=== PATIENT | male | born 1975 | race Caucasian/White ===

== ENCOUNTER 2016-11-18 11:20 | Day surgery (SDC) | payer OTHER ==
[~2016-11-18 11:20] MED LIST: ceFAZolin 2 GM/DEXTROSE 100 ML IV ONE
[2016-11-18] MEDS ORDERED: BUPIVACAINE/EPI 0.25% 30 ML SDV ONE (11:45)
[2016-11-18] MEDS ORDERED: CEFAZOLIN 2 GM/DEXTROSE/100 ML BAG IV ONE (12:07)
[2016-11-18] MEDS ORDERED: LIDOCAINE 1% 2 ML INJ ONE (12:07)
[2016-11-18] MEDS ORDERED: MIDAZOLAM 2 MG/2 ML VIAL ONE (13:02)
[2016-11-18] MEDS ORDERED: PROPOFOL 200 MG/20 ML VIAL ONE (13:08)
[2016-11-18] MEDS ORDERED: ROCURONIUM 50 MG/5 ML VIAL ONE (13:08)
[2016-11-18] MEDS ORDERED: fentaNYL 250 MCG/5 ML INJ ONE (13:08)
[2016-11-18] MEDS ORDERED: LIDOCAINE 2% 5 ML SDV ONE (13:09)
[2016-11-18] MEDS ORDERED: KETOROLAC 30 MG/1 ML SDV ONE (13:09)
[2016-11-18] MEDS ORDERED: DEXAMETHASONE 4 MG/ML VIAL ONE (13:09)
[2016-11-18] MEDS ORDERED: fentaNYL 100 MCG/2 ML INJ ONE (14:51)
--- NOTE | 2016-11-18 15:19 | GOP ---
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 ANESTHESIA: General endotracheal. ANESTHESIOLOGIST: Dr. Dent. PREOPERATIVE DIAGNOSIS: Symptomatic left inguinal hernia. POSTOPERATIVE DIAGNOSIS: Symptomatic left inguinal hernia. PROCEDURE PERFORMED: Laparoscopic left inguinal hernia repair with mesh. FINDINGS: Large, direct, left-sided inguinal defect consistent with preoperative exam. No indirect defect identified. Area patched with Parietex laparoscopic mesh with appropriate overlap. SPECIMENS: None. ESTIMATED BLOOD LOSS: 10 cc. DESCRIPTION OF PROCEDURE: The patient was greeted in the preoperative suite. Once again, risks, be nefits, and alternatives were discussed. Consent was signed. He was then brought back to the opera tive suite, placed on the OR table in a supine position. After all anesthesia machines, including S CDs, were on and functioning, [employer] time-out was performed. General endotrachea l anesthesia was then induced without incident. Antibiotics were given on-call to the operating horacio m. The patient's abdomen was then widely prepped and draped in typical sterile fashion. I commenced th e procedure by making a curvilinear incision inferior to the umbilicus and carried this down. I erika ntified the anterior rectus sheath and using cautery, dissected it off. I then bluntly spread the r ectus muscles and identified the posterior sheath. I then developed a blunt plane here. Through th is, my laparoscopic dissector was placed and I developed the preperitoneal plane. Once this was don e, I successfully placed my laparoscopic ports, 1 successfully through the umbilicus and 2 additiona l 5 mm ports, 1 in the suprapubic and 1 in-between the 2, both under direct visualization. Once suc cessfully into the preperitoneal space, I insufflated with CO2 to 12 mmHg which was well tolerated b y the patient. After this was done, I continued dissection on the lateral space and brought this medially. I ident ified Santosh's ligament, just adjacent to this, the femoral vein and a large indirect defect. This was successfully reduced with gentle dissection. I then dissected the cord structures and identifie d no indirect defect at this site. After this was done, and I had the appropriate space for our mes h, it was then brought back into the operative field. I placed it into the peritoneal cavity. I ta cked it medially and above the direct defect with sufficient overlap and again, medial inferiorly in to the Santosh's ligament. It was allowed to lay over the cord structures appropriately, making sure that there were no peritoneal structures under the mesh. Once this was done, I placed no tacks lat erally and identified the inferior epigastric vessels and placed my lateral-most tack medial to this . After this was done, I desufflated and watched the mesh appropriately to make sure that it sat in th e appropriate position, which it did. My port sites were then removed. Local anesthesia was then i nstilled into all port sites. My infraumbilical site was closed with a [id number] stitch of 0 Vicryl, noting excellent fascial reapproximation. The skin was closed with a running Monocryl, over which Dermabond was placed. The patient was then extubated in the operative suite and taken to the PACU in satisfactory condition. DRAINS: None. COUNTS: All counts were reported as correct x2. /[id number]/MODL
[2016-11-18] MEDS ORDERED: OXYCODONE/APAP 5/325 TAB PO PRN (15:52)
== END 2016-11-18 16:12 | disposition home or self-care (01) ==
LOC: FSGY 11:20
PROVIDERS: ATTEND Surgery
PROC: 0YU64JZ Supplement Left Inguinal Region with Synthetic Substitute, Percutaneous Endoscopic Approach (ICD-10-PCS; principal; 2016-11-18 13:00)
DX: K40.90 Unilateral inguinal hernia, without obstruction or gangrene, not specified as recurrent (principal)
CPT/HCPCS: 49650; C1727; C1781; J0690; J1100; J1885; J2250; J2704; J3010